=== PATIENT | female | born 1990 | race Caucasian/White ===

== ENCOUNTER 2016-10-20 12:49 | Emergency (ER) | payer OTHER ==
[2015-07-27 16:43] VITALS: BMI 19.8
[~2016-10-20 12:49] MED LIST: CALCIUM 600+D T1 TA1 PO; ESTRADERM 0.10.1 MG TRANSDERM; HYDROCODON-ACE1 EAC7 PO; IBUPROFEN600 MG PO; MOTRIN600 MG PO; PERCOCET 5-3251 TAB PO; PERCOCET 5/3251 TA1 PO; PRENATAL COMPLE1 TAB PO
[2016-10-20 14:05] LABS: APPEARANCE CLEAR (CLEAR); BILIRUBIN NEGATIVE (NEGATIVE); COLOR YELLOW (YELLOW); GLUCOSE NEGATIVE (NEGATIVE); KETONE NEGATIVE (NEGATIVE); LEUKOCYTE ESTERASE NEGATIVE (NEGATIVE); NITRITE NEGATIVE (NEGATIVE); PROTEIN NEGATIVE (NEGATIVE); SPECIFIC GRAVITY 1.015 (1.005-1.020); UROBILINOGEN NORMAL (NORMAL)
[2016-10-20 14:15] LABS: BASOPHILS 0.4 % (0-2); EOSINOPHILS 1.3 % (0-7); HEMATOCRIT 40.5 % (36.0-48.0); HEMOGLOBIN 13.3 g/dL (12-16); IMMATURE GRANULOCYTES 0.1 % (0-5); LYMPHOCYTES 29.2 % (15-50); MCH 29.2 pg (26.0-34.0); MCHC 32.8 g/dL (31.0-37.0); MCV 88.8 fL (80.0-100.0); MONOCYTES 6.9 % (2-11); NEUTROPHILS 62.1 % (40-80); RBC 4.56 10x6/uL (4.00-5.40); RDW 12.5 % (11.5-14.5)
[2016-10-20 14:19] LABS: PLATELET COUNT 245 10x3/uL (130-400)
[2016-10-20 14:34] LABS: ALBUMIN 3.8 g/dL (3.4-5.0); ALKALINE PHOSPHATASE 55 U/L (46-116); ALT (SGPT) 19 U/L (10-68); BILIRUBIN - TOTAL 0.68 mg/dL (0.2-1.3); CALC OSMOLALITY 279 mosm/kg (275-300); CALCIUM 9.2 mg/dL (8.5-10.1); CARBON DIOXIDE 31.2 mmol/L (21.0-32.0); CHLORIDE - SERUM 105 mmol/L (98-107); CREATININE - SERUM 0.7 mg/dL (0.6-1.3); GLUCOSE 76 mg/dL (74-106); POTASSIUM - SERUM 3.7 mmol/L (3.5-5.1); PROTEIN - SERUM 7.8 g/dL (6.4-8.2); SODIUM 141 mmol/L (136-145); UREA NITROGEN 12 mg/dL (7-18); eGFR NON AFRICAN AMERICAN > 90 mL/min (90-120)
[2016-10-20 15:04] LABS: HCG SERUM NEGATIVE (NEGATIVE)
== END 2016-10-20 16:30 | disposition home or self-care (01) ==
LOC: D.ER 12:49
PROVIDERS: Emergency Medicine; Physician Assistant
DX: R10.30 Lower abdominal pain, unspecified (principal); R11.2 Nausea with vomiting, unspecified; G43.909 Migraine, unspecified, not intractable, without status migrainosus; M25.571 Pain in right ankle and joints of right foot

== ENCOUNTER 2017-04-01 12:01 | Emergency (ER) | payer OTHER ==
[2015-07-27 16:43] VITALS: BMI 19.8
== END 2017-04-01 12:58 | disposition home or self-care (01) ==
LOC: D.ER 12:01
DX: H60.502 Unspecified acute noninfective otitis externa, left ear (principal)

== ENCOUNTER 2017-04-14 00:14 | Emergency (ER) | payer OTHER ==
[2015-07-27 16:43] VITALS: BMI 19.8
== END 2017-04-14 02:33 | disposition home or self-care (01) ==
LOC: D.ER 00:14
DX: S00.83XA Contusion of other part of head, initial encounter (principal); S10.93XA Contusion of unspecified part of neck, initial encounter; Y04.2XXA Assault by strike against or bumped into by another person, initial encounter; Y93.89 Activity, other specified; Y92.029 Unspecified place in mobile home as the place of occurrence of the external cause; S06.0X9A Concussion with loss of consciousness of unspecified duration, initial encounter

== ENCOUNTER 2017-05-03 21:34 | Emergency (ER) | payer OTHER ==
[2015-07-27 16:43] VITALS: BMI 19.8
== END 2017-05-03 22:49 | disposition home or self-care (01) ==
LOC: D.ER 21:34
DX: S02.2XXA Fracture of nasal bones, initial encounter for closed fracture (principal); W50.0XXA Accidental hit or strike by another person, initial encounter; Y93.89 Activity, other specified; Y92.89 Other specified places as the place of occurrence of the external cause

== ENCOUNTER 2019-03-06 11:08 | Emergency (ER) | payer OTHER ==
[~2019-03-06] VITALS: Ht 160 cm; Wt 57.7 kg
[2019-03-06 11:12] VITALS: Ht 160 cm; Wt 57.7 kg
[2019-03-06] MEDS ORDERED: BIEST (11:17)
[2019-03-06] MEDS ORDERED: PROMETRIUM200 MG PO (11:17)
[2019-03-06 11:57] LABS: ALKALINE PHOSPHATASE 80 U/L (46-116); ALT (SGPT) 23 U/L (10-68); BILIRUBIN - TOTAL 1.72 mg/dL (0.2-1.3); CALC OSMOLALITY 281 mosm/kg (275-300); CALCIUM 9.4 mg/dL (8.5-10.1); CHLORIDE - SERUM 105 mmol/L (98-107); CREATININE - SERUM 0.9 mg/dL (0.6-1.3); GLUCOSE 95 mg/dL (74-106); POTASSIUM - SERUM 3.7 mmol/L (3.5-5.1); PROTEIN - SERUM 7.7 g/dL (6.4-8.2); SODIUM 141 mmol/L (136-145); UREA NITROGEN 15 mg/dL (7-18); eGFR NON AFRICAN AMERICAN 79 mL/min (90-120)
[2019-03-06 12:00] LABS: AMYLASE - SERUM 48 U/L (25-115); LIPASE 61 U/L (73-393); TROPONIN-I < 0.017 ng/mL (0.000-0.060)
[2019-03-06 12:02] LABS: HEMATOCRIT 38.3 % (36.0-48.0); HEMOGLOBIN 12.8 g/dL (12-16); LYMPHOCYTES 27.7 % (15-50); MCH 28.8 pg (26.0-34.0); MCHC 33.4 g/dL (31.0-37.0); MCV 86.3 fL (80.0-100.0); MEAN PLATELET VOLUME 9.8 fL (7.4-10.4); PLATELET COUNT 208 10x3/uL (130-400); RBC 4.44 10x6/uL (4.00-5.40); RDW 11.9 % (11.5-14.5); WBC 5.7 10x3/uL (4.8-10.8)
[2019-03-06 12:17] LABS: APPEARANCE CLEAR (CLEAR); COLOR YELLOW (YELLOW); PROTEIN NEGATIVE (NEGATIVE); SPECIFIC GRAVITY 1.015 (1.005-1.020)
[2019-03-06 12:20] LABS: BILIRUBIN NEGATIVE (NEGATIVE); EPITHELIAL CELLS 0-5 /hpf (0-5); GLUCOSE NEGATIVE (NEGATIVE); KETONE SMALL mg/dL (NEGATIVE); MUCUS <1+ /lpf (NONE SEEN); RED CELLS - URINE 0-5 /hpf (0-5)
[2019-03-06] MEDS ORDERED: PROTONIX20 MG PO (14:36)
[2019-03-06] MEDS ORDERED: ZOFRAN4 MG PO (14:36)
[2019-03-06 14:58] VITALS: BP 103/64
== END 2019-03-06 14:59 | disposition home or self-care (01) ==
LOC: D.ER 11:08
PROVIDERS: Emergency Medicine
DX: R11.2 Nausea with vomiting, unspecified (principal); R07.9 Chest pain, unspecified; F17.290 Nicotine dependence, other tobacco product, uncomplicated

== ENCOUNTER 2020-10-15 13:45 | Emergency (ER) | payer OTHER ==
[~2020-10-15] VITALS: Ht 160 cm; Wt 9.1 kg
[~2020-10-15 13:45] MED LIST changes: +BIEST; +PROMETRIUM200 MG PO; +PROTONIX20 MG PO; +ZOFRAN4 MG PO
[2020-10-15 13:49] VITALS: Ht 160 cm; Wt 9.1 kg
[2020-10-15 14:25] LABS: BASOPHILS 0.3 % (0-2); HEMATOCRIT 37.4 % (36.0-48.0); HEMOGLOBIN 12.4 g/dL (12-16); IMMATURE GRANULOCYTES 0.3 % (0-5); LYMPHOCYTE ABS# 2.14 10x3/uL (1.18-3.74); LYMPHOCYTES 30.5 % (15-50); MCHC 33.2 g/dL (31.0-37.0); MCV 87.4 fL (80.0-100.0); MEAN PLATELET VOLUME 9.7 fL (7.4-10.4); MONOCYTES 4.7 % (2-11); NEUTROPHIL ABS# 4.29 10x3/uL (1.56-6.13); NEUTROPHILS 61.2 % (40-80); RBC 4.28 10x6/uL (4.00-5.40); RDW 12.5 % (11.5-14.5)
[2020-10-15 14:30] LABS: PLATELET COUNT 251 10x3/uL (130-400)
[2020-10-15 14:34] LABS: CALC OSMOLALITY 280 mosm/kg (275-300); CHLORIDE - SERUM 105 mmol/L (98-107); CREATININE - SERUM 0.8 mg/dL (0.6-1.3); GLUCOSE 127 mg/dL (74-106); POTASSIUM - SERUM 3.5 mmol/L (3.5-5.1); SODIUM 139 mmol/L (136-145); UREA NITROGEN 14 mg/dL (7-18); eGFR NON AFRICAN AMERICAN 89 mL/min (90-120)
[2020-10-15 14:42] LABS: ALBUMIN 3.9 g/dL (3.4-5.0); ALKALINE PHOSPHATASE 65 U/L (30-120); ALT (SGPT) 22 U/L (10-68); AMYLASE - SERUM 54 U/L (25-115); BILIRUBIN - TOTAL 0.79 mg/dL (0.2-1.3); LIPASE 47 U/L (73-393); PROTEIN - SERUM 7.3 g/dL (6.4-8.2); TROPONIN-I < 0.017 ng/mL (0.000-0.060)
[2020-10-15 15:34] LABS: BILIRUBIN NEGATIVE (NEGATIVE); KETONE NEGATIVE (NEGATIVE); NITRITE NEGATIVE (NEGATIVE); UROBILINOGEN NORMAL mg/dL (< 2)
[2020-10-15] MEDS ORDERED: BENTYL10 MG PO (15:42)
[2020-10-15] MEDS ORDERED: PEPCID40 MG PO (15:42)
[2020-10-15] MEDS ORDERED: ZOFRAN ODT4 MG/UDTAB PO (15:42)
== END 2020-10-15 15:56 | disposition home or self-care (01) ==
LOC: D.ER 13:45
PROVIDERS: Student in an Organized Health Care Education/Training Program
DX: R10.13 Epigastric pain (principal)

== ENCOUNTER → 2020-11-23 08:08 | Outpatient (CLI) | payer OTHER ==
[2020-10-15 13:49] VITALS: BMI 22.5
[~2020-11-23 08:08] MED LIST changes: +BENTYL10 MG PO; +PEPCID40 MG PO; +ZOFRAN ODT4 MG/UDTAB PO
== END | disposition home or self-care (01) ==
LOC: D.NM 08:08
PROVIDERS: ATTEND Nurse Practitioner
DX: R10.11 Right upper quadrant pain (principal)

== ENCOUNTER 2020-12-03 06:37 | Day surgery (SDC) | payer OTHER ==
--- NOTE | 2020-12-02 15:43 | NUR ---
WHILE CALLING PATIENT TO GIVE PREOP INSTRUCTIONS FOR SURGERY 12/04/20 PATIENT IS ARGUMENTATIVE, INTERRUPTS NURSE SEVERAL TIMES SAYING "I ALREADY KNOW THIS. CAN WE NOT DO THIS? I HAVE HAD SURGERY MANY TIMES." PATIENT ARGUMENTATIVE ABOUT ARRIVAL TIME, STATES "IT WILL JUST TAKE A FEW MINUTES TO REGISTER SO I DON'T NEED TO BE THERE THAT EARLY." PATIENT EVENTUALLY AGREES WITH ARRIVAL TIME OF 0630.
[~2020-12-03] VITALS: Ht 160 cm; Wt 59.0 kg
[2020-12-03 06:54] LABS: HEMATOCRIT 38.9 % (36.0-48.0); HEMOGLOBIN 12.7 g/dL (12-16); MCH 28.2 pg (26.0-34.0); MCHC 32.6 g/dL (31.0-37.0); MCV 86.5 fL (80.0-100.0); RBC 4.5 10x6/uL (4.00-5.40); RDW 12.7 % (11.5-14.5); WBC 6.8 10x3/uL (4.8-10.8)
[2020-12-03 07:30] LABS: HCG SERUM NEGATIVE (NEGATIVE)
[2020-12-03 07:37] VITALS: BP 93/59; Ht 160 cm; Wt 59.0 kg
[2020-12-03] MEDS ORDERED: HYDROCODON-ACE1 EA10 PO (10:28)
--- NOTE | 2020-12-03 18:01 | NUR ---
1208 PT VERY DROWSY UPON ARRIVAL FROM PACU. PT RECEIVED DILAUDID,VERSED AND DEMEROL IN PACU. STATES HER PAIN LEVEL IS A 8 OUT OF 10. PT IS TOO SEDATED FOR ADDITIONAL PAIN MEDICATION.
--- NOTE | 2020-12-03 18:10 | NUR ---
1545 PT APPEARS COMFORTABLE WHILE IN THE BED AND NOT MOVING BUT TENSES UP AND IS GUARDED WHILE WALKING TO THE BR. PT HAS NOT ASKED FOR PAIN MEDICATION AND IS STARTING TO WAKE UP MORE FROM IV NARCOTICS THAT WERE GIVEN IN PACU.
--- NOTE | 2020-12-03 18:14 | NUR ---
1625 PT HAS UNSUCCESSFUL ATTEMPTS X3 TO VOID. PT VOMITED WHILE IN BR THIS LAST ATTEMPT. UNABLE TO ACCESS EMESIS AMOUNT. PT BACK IN THE BED. PT IS ANGRY AND ARGUMENTATIVE AT THE MOMENT. SHE STATES THAT THIS HOSPITAL "DOESN'T LET THEIR PATIENTS SMOKE POT IN THIS HOSPITAL" HER PAIN IS A 10 OUT OF 10. 1635 NORCO OFFERED TO PATIENT. PT STATES THE PAIN MEDICINE WILL NOT WORK. I ASKED HER IF SHE WANTED ME TO RETURN THE NORCO AND SHE SAID NO THAT SHE WOULD TAKE IT. I EXPLAINED TO HER THAT NOW THAT SHE WAS MORE AWAKE, I COULD GIVE HER THE NARCOTIC AND MAYBE SHE COULD RELAX AND BE ABLE TO VOID. SHE IS REQUESTING ANOTHER NURSE TO FINISH HER CARE. 1700 REPORT GIVEN TO MARINA ANGEL RN WHO WILL CONTINUE HER CARE. 1712 PT ESCORTED TO BATHROOM PER MARINA ANGEL RN AND PT WAS ABLE TO VOID. PT REPORTS TO MARINA THAT HER PAIN IS STILL A 10 OUT OF 10. 1735 MARINA ANGEL RN REVIEWED DISCHARGE INSTRUCTIONS WITH PT WHO VOICED UNDERSTANDING OF THESE INSTRUCTIONS. ICE PACK GIVEN TO PT PER MARINA TO USE AT HOME. 1745 IV DC'D PER MARINA ANGEL WHO STATED THAT CATHETER TIP WAS INTACT. NO BLEEDING, SWELLING OR REDNESS WAS NOTED AT SITE. COBAN DRESSING APPLIED PER VJ GRAY. 1753 PT DRESSED AND READY FOR DISCHARGE. PT TAKEN PER TO CAR BY MARINA ANGEL RN
--- NOTE | 2020-12-07 14:49 | OP ---
PATIENT NAME: PENELOPE LEIGH MEDICAL RECORD: [id number] :90 LOCATION:D.OPS ADMISSION DATE: SURGEON: JOHNNY SOTO MD DATE OF OPERATION: 12/03/2020 PREOPERATIVE DIAGNOSES: 1. Biliary dyskinesia. 2. Gastroesophageal reflux disease. POSTOPERATIVE DIAGNOSES: 1. Biliary dyskinesia. 2. Gastroesophageal reflux disease. PROCEDURE: Laparoscopic cholecystectomy. SURGEON: Johnny Soto MD REPORT OF PROCEDURE: The patient's abdomen was prepped and draped in sterile fashion. A cutdown was made on the inferior aspect of the umbilicus. 0 Vicryls were placed on the fascia bilaterally and the fascia was incised with a 15-blade. I then bluntly entered the peritoneal cavity and placed a 12-mm Diana port. Under direct visualization, a 5-mm trocar was placed in the epigastrium and 2 more 5-mm trocars were placed in the right subcostal region. The gallbladder was grasped and elevated. There are no signs of any inflammatory changes. The cystic artery and cystic duct were dissected free. These structures were clipped proximally and distally and ligated in standard fashion. The gallbladder was taken off the liver bed using electrocautery and placed into the right upper quadrant. Any bleeding from the liver bed was then treated with electrocautery. The ports and insufflation were then removed and the gallbladder was taken out through the umbilicus. The umbilical fascia was closed with interrupted 0 Vicryls times 3. The wounds were then irrigated out with normal saline and infused with 10 mL of 0.25% Marcaine with epinephrine. The skin incisions were closed with subcutaneous 5-0 Monocryl and dressed appropriately. COMPLICATIONS: None. CONDITION: Stable. ANESTHESIA: General endotracheal and local. BLOOD LOSS: Minimal. TRANSINT:[id number] Voice Confirmation ID: [id number] DOCUMENT ID: [id number] JOHNNY SOTO MD at 1449 CC: JENNIFER CONTRERAS APRN [id number] DICTATION DATE: 12/03/20 1030 CIRCULAR KNITTER: 12/03/20 1051 [facility] 12/03/20 [place] [address]
== END 2020-12-03 17:53 | disposition home or self-care (01) ==
LOC: D.OPS 06:37
PROVIDERS: Anesthesiology; ATTEND Surgery
DX: K82.8 Other specified diseases of gallbladder (principal); K21.9 Gastro-esophageal reflux disease without esophagitis; R11.2 Nausea with vomiting, unspecified